=== PATIENT | female | born 1945 | race Two or more races ===

== ENCOUNTER 2024-03-30 11:00 | Outpatient (OUT) | payer MEDICAID, SELFPAY ==
--- NOTE | 2024-03-30 | XR_ITS ---
The [address] [address] Patient Name: IZZY MANZANARES MRN: [id number] date: 1945 Sex: F Assigned Patient Location: Current Patient Location: Accession/Order Number: [id number] Exam Date: 03/30/2024 11:02 Report Date: 03/30/2024 12:03 At the request of: DELONTE CISNEROS Procedure: XR knee LT 4V PROCEDURE: XR knee LT 4V COMPARISON: None. HISTORY: LEFT KNEE PAIN FINDINGS: BONES:No acute fracture or dislocation. Severe tricompartmental osteoarthritis with [id number] articulation medial compartment. Marginal osteophyte formation. Chondrocalcinosis SOFT TISSUES:Negative. No visible soft tissue swelling. EFFUSION:Moderate suprapatellar joint effusion OTHER: Negative. XR/XR knee LT 4V IMPRESSION: Severe osteoarthritis with joint effusion Electronically authenticated by: FRANNIE CAMPOS Date: 03/30/2024 12:03
== END 2024-03-30 11:01 | disposition home or self-care (01) ==
LOC: EC 11:00
PROVIDERS: Visit Provider Orthopaedic Surgery
DX: M25.562 Pain in left knee (principal); M17.12 Unilateral primary osteoarthritis, left knee
CPT/HCPCS: 73564

== ENCOUNTER 2024-11-28 12:32 | Emergency (ER) | payer MEDICARE, SELFPAY ==
[2024-11-28] VITALS (19 sets, daily range): BP systolic 142–164; BP diastolic 82–107; PULSE 69–83; TEMP 36.4; O2SAT 91–98; BMI 28.3
--- NOTE | 2024-11-28 12:41 | ECG_ITS ---
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
--- OUTSIDE RECORDS SUMMARY | 2024-11-28 12:43 | XMS_ITS | CCD ---
Author Organization [facility] Allergies Allergy Classification Reported Allergen(s) Allergy Type Date of Onset Reaction(s) Facility (1 source) IODINATED CONTRAST MEDIA; Translations: [IODINATED CONTRAST MEDIA] Propensity to adverse reactions to drug (disorder) [facility] Repository Medications Current Medications Medication Drug Class(es) Dates Sig (Normalized) Sig (Original) apixaban 2.5 mg oral tablet (1 source) Factor Xa Inhibitor Start: 03-10-2024 take 1 tablet by mouth twice daily Apixaban (Eliquis) 2.5 mg tablet Active 2.5 MG PO Twice daily March 10, 2024 12:00am aspirin 81 mg delayed release oral tablet (1 source) Platelet Aggregation Inhibitor, Nonsteroidal Anti-inflammatory Drug Start: 03-10-2024 Aspirin (Adult Low Dose Aspirin) 81 mg tablet,delayed release (DR/EC) Active 81 MG PO Daily March 10, 2024 12:00am atorvastatin 20 mg oral tablet (1 source) HMG-CoA Reductase Inhibitor Start: 03-10-2024 take 20 mg by mouth once daily Atorvastatin Active 20 MG PO Daily March 10, 2024 12:00am B Complex-Vitamin C-Folic Acid (Ashley-Jenny) 0.8 mg tablet (1 source) Start: 03-10-2024 take 1 tablet by mouth once daily B Complex-Vitamin C-Folic Acid (Ashley-Jenny) 0.8 mg tablet Active 1 TAB PO Daily March 10, 2024 12:00am cholecalciferol 0.125 mg oral capsule (1 source) Vitamin D Start: 03-10-2024 take 125 ug by mouth once daily Cholecalciferol (Vitamin D3) Active 125 MCG PO Daily March 10, 2024 12:00am hydrALAZINE hydrochloride 25 mg oral tablet (1 source) Arteriolar Vasodilator Start: 03-10-2024 take 25 mg by mouth three times daily Hydralazine Active 25 MG PO Three times daily March 10, 2024 12:00am 24 hr isosorbide mononitrate 30 mg extended release oral tablet (1 source) Nitrate Vasodilator Start: 03-10-2024 take 30 mg by mouth once daily Isosorbide Mononitrate Active 30 MG PO Daily March 10, 2024 12:00am levothyroxine sodium 0.088 mg oral capsule (1 source) l-Thyroxine Start: 03-10-2024 take 88 ug by mouth once daily Levothyroxine Active 88 MCG PO Daily March 10, 2024 12:00am 24 hr metoprolol succinate 50 mg extended release oral tablet (2 sources) beta-Adrenergic Luli Start: 03-10-2024 End: 03-10-2024 take 50 mg by mouth twice daily Metoprolol Succinate Active 50 MG PO Twice daily 180 90 March 10, 2024 12:00am Vericiguat (Verquvo) 2.5 mg tablet (1 source) Start: 03-10-2024 take 1 tablet by mouth once daily at mealtime Vericiguat (Verquvo) 2.5 mg tablet Active 2.5 MG PO Daily March 10, 2024 12:00am must administer with a meal/food Problems Problem Classification Problem Date Documented Da te Episodic/Chronic Essential hypertension (2 sources) Hypertensive disorder; Translations: [Essential (primary) hypertension] 03-10-2024 Chronic Other connective tissue disease (1 source) Pain in left finger(s); Translations: [Pain in left finger(s)] Onset: 11-15-2024 Episodic Other connective tissue disease (1 source) Hand pain Onset: 11-15-2024 Episodic Thyroid disorders (2 sources) Hypothyroidism; Translations: [Hypothyroidism, unspecified] 03-10-2024 Chronic Unclassified (1 source) Finger Pain Onset: 11-15-2024 Results Test Name Value Interpretation Reference Range Facil ity XR FINGER LT 2ND DIGIT MIN 2 VWSon 11-15-2024 XR FINGER LT 2ND DIGIT MIN 2 VWS XR FINGER LT 2ND DIGIT MIN 2 VWS Clinical history: Finger trauma Left second finger: 11/15/2024 FINDINGS: 3 views the left second digit were obtained. There is no definite fracture or focal osseous abnormality evident radiographically. Degenerative changes are present at the interphalangeal joints and the first MCP articulation. Some chondrocalcinosis may reflect crystalline deposition. IMPRESSION: No fracture or acute osseous abnormality. Finalized by Gilmer Alvarez MD on 11/15/2024 5:24 PM Normal [facility] XR FINGER LT 3RD DIGIT MIN 2 VWSon 11-15-2024 XR FINGER LT 3RD DIGIT MIN 2 VWS XR FINGER LT 3RD DIGIT MIN 2 VWS CLINICAL HISTORY: Pain and injury Comparison: None Views 3 views FINDINGS: * No fracture, dislocation, erosion, nor periostitis. * Alignment satisfactory. * No radiopaque foreign body * Periarticular calcification involving the MTP joints, TFCC, medial carpus. IMPRESSION: * Advancing degenerative changes above. No acute osseous abnormality Finalized by Farhad Thao MD on 11/15/2024 5:20 PM Normal [facility] Vital Signs Date Time Vital Sign Value Performing Clinician Yojanai jenny 03-10-2024 08:15-0400 Body height 162.56 cm [facility] 03-10-2024 08:15-0400 Body mass index (BMI) [Ratio] 28.5 kg/m2 [facility] 03-10-2024 08:15-0400 Body weight 75.29 kg [facility] 03-10-2024 08:15-0400 Diastolic blood pressure 78 mm[Hg] [facility] 03-10-2024 08:15-0400 Heart rate 72 /min [facility] 03-10-2024 08:15-0400 SaO2% (BldA) [Mass fraction] 98 % [facility] 03-10-2024 08:15-0400 Systolic blood pressure 122 mm[Hg] [facility] Encounters Encounter Date Encounter Type Care Provider Facility Start: 11-15-2024 End: 11-15-2024 Emergency department patient visit [facility] Start: 03-10-2024 End: 03-10-2024 ambulatory [facility] Work Phone: Start: 03-10-2024 End: 03-10-2024 Patient encounter procedure [facility] Work Phone: Payers Date Payer Category Payer Private Health Insurance [id number] 1945 Unknown [id number] Social History Date Type Detail Facility Start: 03-10-2024 Tobacco smoking stat us [facility] Never smoked tobacco (finding) [facility] Start: 1945 Sex Assigned At Female F [facility] Evaluation note Note Date & Type Note Facility Evaluation note Diagnosis Onset Date Hypertension acute Hypothyroidism acute [facility] Work Phone: Chief Complaint and Reason for Visit Chief Complaint Establish Reason for Visit Hypertension Hypothyroidism Advance Directives No Advanced Directives Records Found Advance Directive Response Recorded Date/ Time Advance Directives No March 06 1:42pm Summary Purpose Family History No Family History Records Found Additional Source Comments Care Teams (unrecognized sec tion and content) Team Status: Active Member Role Status Dates Ivory Crowell APRN SENIOR FUNCTIONAL ANALYST-C Primary Care Provider Active Team Status: Inactive Member Role Status Dates DARRYL Wagoner Primary Care Provider, Attending Provider Active Start: March 10, 2024 End: March 10, 2024 Goals (unrecognized section and content) Goals may be documented in a n alternate section INFORMATION SOURCE (unrecogn ized section and content) DATE CREATED AUTHOR 11/16/2024 [facility] FOR RECORDS PERTAINING TO PATIENTS WHO ARE OR HAVE BEEN ENROLLED IN A CHEMICAL DEPENDENCY/SUBSTANCEABUSE PROGRAM, SOME INFORMATION MAY BE OMITTED. This clinical summary was aggregated from multiple sources. Caution should be exercised in using it in the provision of clinical care. This summary normalizes information from multiple sources, and as a consequence, information in this document may materially change the coding, format and clinical context of patient data. In addition, data may be omitted in some cases. CLINICAL DECISIONS SHOULD BE BASED ON THE PRIMARY CLINICAL RECORDS. [employer] provides no warranty or guarantee of the accuracy or completeness of information in this document.
--- NOTE | 2024-11-28 12:48 | CT_ITS ---
The [address] [address] Patient Name: IZZY MANZANARES MRN: [id number] date: 1945 Sex: F Assigned Patient Location: ER Current Patient Location: ER Accession/Order Number: [id number] Exam Date: 11/28/2024 14:52 Report Date: 11/28/2024 14:59 At the request of: KARYNA SEARS Procedure: CT abdomen pelvis wo con CT abdomen pelvis wo con 11/28/2024 2:32 PM SIGNS AND SYMPTOMS: Acute epigastric pain with pain radiating into right upper quadrant TECHNIQUE: Multidetector ct axial images of the abdomen and pelvis were obtained without IV contrast. Multiplanar reformats were performed and reviewed to further define anatomy and possible pathology. CT was performed with one or more of the following dose reduction techniques: Automated exposure control, adjustment of the mA and/or kV according to patient size, or use of iterative reconstruction technique. COMPARISON: None. FINDINGS: Lower Chest: Mild atherosclerotic changes are noted in the coronary arteries. There is a pacer device with leads extending into the heart. Mild dependent airspace opacity is noted in the lower lobes bilaterally possibly representing infectious infiltrate or atelectasis. ABDOMEN: Liver: Within normal limits. Bile Ducts: Normal caliber. Gallbladder: No calcified gallstones. Normal caliber wall. Pancreas: Within normal limits. Spleen: Within normal limits. Adrenals: Within normal limits. Kidneys: Simple cysts are noted in the renal cortices requiring no further follow-up. Pelvis: Reproductive Organs: No pelvic masses. Ureters: Within normal limits. Bladder: Within normal limits. Bowel: There are uncomplicated colonic diverticula. Mesenteric Lymph Nodes: No enlarged mesenteric lymph nodes. Peritoneum: No ascites or free air, no fluid collection. Vessels: Atherosclerotic changes are noted in the abdominal aorta and its branches. Retroperitoneum: Within normal limits. Abdominal Wall: Within normal limits. Bones: Degenerative changes are noted in the thoracolumbar spine, hips, and sacroiliac joints. CT/CT abdomen pelvis wo con IMPRESSION: No bowel obstruction or obstructive uropathy. No free fluid or free air. No acute intra-abdominal pathology. Hazy airspace opacities are noted dependently in the lower lobes bilaterally possibly relating to atelectasis or developing infiltrate. Impression dictated by: Herrera Overton M.D.11/28/2024 2:59 PM Dictation Location: [place] [address] Electronically authenticated by: [id number] Y Date: 11/28/2024 14:59
[2024-11-28 13:03] LABS: Basophils Percent Auto 0.8 % (0.2-2.0); Eosinophils Absolute Auto 0.1 10^3/uL (0.0-0.7); Eosinophils Percent Auto 2.3 % (0.9-7.0); Hematocrit 40.1 % (36.0-48.0); Hemoglobin 13.3 g/dL (12.0-16.0); Immature Granulocytes Abs Auto 0.01 10^3/uL (0.00-0.03); Immature Granulocytes Pct Auto 0.2 % (0.0-0.5); Lymphocytes Absolute Auto 1.9 10^3/uL (1.2-3.8); Lymphocytes Percent Auto 36.8 % (20.5-60.0); Mean Corpuscular HGB Conc 33.2 g/dL (29.9-35.2); Mean Corpuscular Hemoglobin 31.1 pg (26.7-34.0); Mean Corpuscular Volume 93.7 fL (81.0-99.0); Mean Platelet Volume 9.7 fL (9.5-13.5); Monocytes Absolute Auto 0.5 10^3/uL (0.3-0.8); Monocytes Percent Auto 10.1 % (1.7-12.0); Neutrophils Absolute Auto 2.6 10^3/uL (1.4-6.5); Neutrophils Percent Auto 49.8 % (43.0-75.0); Platelet Count 171 10^3/uL (150-450); Red Blood Count 4.28 10^6/uL (4.20-5.40); Red Cell Distribution Width 14.6 % (11.0-15.0); White Blood Count 5.2 10^3/uL (4.0-11.0)
--- NOTE | 2024-11-28 13:04 | ED.ABDPAIN1 ---
HPI - Abdominal Pain General Chief Complaint: Abdominal Pain Stated Complaint: ABDOMINAL PAIN, SHORT OF BREATH Time Seen by Provider: 11/28/24 12:43 Source: patient Mode of arrival: walk-in Limitations: no limitations History of Present Illness HPI narrative: cc = right sided and epigastric abd pain Not sure why chest pain was entered in triage info but the patient told me that she had been having waxing and waning pain in the epigastrium and the right mid abdomen for the last month or so. No recent testing or evaluation for this. She said it worsened this morning so she asked the family to bring her to the ED. Nothing taken for the pain. No fever or chills. No nausea, vomiting or diarrhea. No change in urination and pain does not radiate to the flank. No blood in urine or stool. Prior surgeries include cholecystectomy and kidney stone removal more than 3o years ago . Hysterectomy and oophorectomy in 2020. All surgeries were in [place] where she lived until moving to [place] in 2022. PMHx includes PM implantation, multiple AMIs w stenting Related Data Home Medications ?Medication ?Instructions ?Recorded ?Confirmed apixaban 2.5 mg tablet (Eliquis) mg 11/28/24 atorvastatin 20 mg tablet mg 11/28/24 hydralazine 25 mg tablet mg 11/28/24 isosorbide mononitrate 30 mg mg PO 11/28/24 tablet,extended release 24 hr metoprolol succinate 50 mg mg PO 11/28/24 tablet,extended release 24 hr vitamin B complex-vitamin C-folic tab 11/28/24 acid 0.8 mg tablet (Ashley-Jenny) Previous Rx's ?Medication ?Instructions ?Recorded hyoscyamine sulfate 0.125 mg 0.125 mg PO Q6H PRN abdominal pain 11/28/24 sublingual tablet (Levsin/SL) #20 tabs omeprazole 20 mg capsule,delayed 20 mg PO DAILY 6 weeks #42 caps 11/28/24 release Allergies Allergy/AdvReac Type Severity Reaction Status Date / Time Iodinated Contrast Media Allergy Severe Rash Verified 11/28/24 12:41 PFSH PFSH Social History Little interest or pleasure in doing things: not at all Feeling down, depressed, or hopeless: not at all Exam Narrative Exam Narrative: Nurses notes and vital signs reviewed and patient is not hypoxic. afebrile General: Well-appearing and in no apparent distress. Skin: Warm, dry, no pallor noted. No rash to flank or abdomen. Head: Normocephalic, atraumatic. Eye: Pupils are equal, round and EOMI. No scleral icterus. Ears, Nose, Mouth, and Throat: Oral mucosa is moist Cardiovascular: Regular Rate and Rhythm without murmur, gallop or rub. Respiratory: No accessory muscle use or respiratory distress. Lungs are clear to auscultation, no wheezing, rales or rhonchi Back: No midline thoracic or lumbar vertebral tenderness. No CVA tenderness Musculoskeletal: normal ROM GI: Abdomen is soft, non-distended. Normal bowel sounds. No masses appreciated. Diffuse epigastric and right sided tenderness to palpation. No rebound, guarding, or rigidity noted. Neurological: A&O x4. No cranial nerve dysfunction observed. No truncal ataxia. Moves all extremities. Sensation intact. Psychiatric: Cooperative and interactive. Normal mood and affect. Constitutional Vital Signs, click to edit/add: Last Vital Signs Temp 97.6 F 11/28/24 12:36 Pulse 82 11/28/24 12:36 Resp 20 11/28/24 12:36 BP 164/107 H 11/28/24 12:36 Pulse Ox 97 11/28/24 12:36 O2 Del Method Room Air 11/28/24 12:36 Course Vital Signs Vital signs: Vital Signs Temperature 97.6 F 11/28/24 12:36 Pulse Rate 82 11/28/24 12:36 Respiratory Rate 20 11/28/24 12:36 Blood Pressure 164/107 H 11/28/24 12:36 Pulse Oximetry 97 11/28/24 12:36 Oxygen Delivery Method Room Air 11/28/24 12:36 Temperature 97.6 F 11/28/24 12:36 Pulse Rate 82 11/28/24 12:36 Respiratory Rate 20 11/28/24 12:36 Blood Pressure 164/107 H 11/28/24 12:36 Pulse Oximetry 97 11/28/24 12:36 Oxygen Delivery Method Room Air 11/28/24 12:36 MDM - Abdominal Pain MDM Narrative Medical decision making narrative: Patient was placed on awake overnight monitor and EKG obtained. Blood drawn and sent for evaluation. Peripheral IV established and she was given Zofran for nausea as a preventative measure since I ordered her to receive low-dose Dilaudid for pain. She is allergic to IV contrast, therefore we ordered a CT scan of the abdomen and pelvis to be done with oral contrast only. EKG shows ventricular pacing, consistent with the patient's history. CBC normal. CMP normal and lactate negative. CT scan did not reveal anything to account for the patient's pain. No bowel obstruction or obstructive uropathy, no free fluid or free air, no acute intra-abdominal pathology. Incidentally there are some airspace opacities noted in the lower lobes bilaterally, likely secondary to atelectasis versus developing infiltrate. However patient does not have cough or fever, has normal oxygenation and an unremarkable respiratory exam, making infiltrate less likely. Pt and family informed of findings - pt without any dangerous or worrisome pathology on exam and testing. Pt discharged home with prescription for omeprazole and Levsin and instructed to maintain clear liquid diet for next 24 hours. PCP follow up recommended. Lab Data Attestation: I reviewed the patient's lab results. Labs: Lab Results 11/28/24 Range/Units 12:57 WBC 5.2 (4.0-11.0) 10^3/uL RBC 4.28 (4.20-5.40) 10^6/uL Hgb 13.3 (12.0-16.0) g/dL Hct 40.1 (36.0-48.0) % MCV 93.7 (81.0-99.0) fL MCH 31.1 (26.7-34.0) pg MCHC 33.2 (29.9-35.2) g/dL RDW 14.6 (11.0-15.0) % Plt Count 171 (150-450) 10^3/uL MPV 9.7 (9.5-13.5) fL Neut % (Auto) 49.8 (43.0-75.0) % Lymph % (Auto) 36.8 (20.5-60.0) % [place] % (Auto) 10.1 (1.7-12.0) % Eos % (Auto) 2.3 (0.9-7.0) % Baso % (Auto) 0.8 (0.2-2.0) % Neut # (Auto) 2.6 (1.4-6.5) 10^3/uL Lymph # (Auto) 1.9 (1.2-3.8) 10^3/uL [place] # (Auto) 0.5 (0.3-0.8) 10^3/uL Eos # (Auto) 0.1 (0.0-0.7) 10^3/uL Baso # (Auto) 0.0 (0.0-0.1) 10^3/uL Abs Immat Gran (auto) 0.01 (0.00-0.03) 10^3/uL Imm/Tot Granulo (auto) 0.2 (0.0-0.5) % Sodium 137 (136-145) mmol/L Potassium 4.0 (3.5-5.1) mmol/L Chloride 103 (98-107) mmol/L Carbon Dioxide 27.5 (21.0-32.0) mmol/L Anion Gap 10.5 BUN 17.0 (7.0-18.0) mg/dL Creatinine 0.99 (0.55-1.02) mg/dL Est GFR ( Amer) >60 (>=60 mL/min/1.73m^2) Est GFR (Non-Af Amer) 54 L (>=60 mL/min/1.73m^2) BUN/Creatinine Ratio 17.2 Glucose 115 H (74-106) mg/dL Lactate 1.2 (0.4-2.0) mmol/L Calcium 10.5 H (8.5-10.1) mg/dL Total Bilirubin 1.1 H (0.2-1.0) mg/dL AST 28 (15-37) U/L ALT 29 (14-59) U/L Alkaline Phosphatase 74 (46-116) U/L Total Protein 7.1 (6.4-8.2) g/dL Albumin 3.8 (3.4-5.0) g/dL Globulin 3.3 g/dL Albumin/Globulin Ratio 1.[address] scan - abdomen: Radiologist's impression: ITS Impressions Abdomen/Pelvis CT 11/28/24 12:48 IMPRESSION: No bowel obstruction or obstructive uropathy. No free fluid or free air. No acute intra-abdominal pathology. Hazy airspace opacities are noted dependently in the lower lobes bilaterally possibly relating to atelectasis or developing infiltrate. Impression dictated by: Herrera Overton M.D.11/28/2024 2:59 PM Dictation Location: [place] [address] Electronically authenticated by: [id number] Y Date: 11/28/2024 14:59 ECG Data Attestation: I personally reviewed and interpreted this ECG as follows: Interpretation: EKG interpretation: Emergency Department physician interpretation. Electronic ventricular pacemaker at 79bpm. Atypical EKG. Discharge Plan Discharge Chief Complaint: Abdominal Pain Clinical Impression: Abdominal pain Patient Disposition: Home, Self-Care Time of Disposition Decision: 15:10 Prescriptions / Home Meds: New hyoscyamine sulfate [Levsin/SL] 0.125 mg tablet, sublingual 0.125 mg PO Q6H PRN (Reason: abdominal pain) Qty: 20 0RF omeprazole 20 mg capsule,delayed release(DR/EC) 20 mg PO DAILY 42 Days Qty: 42 0RF No Action atorvastatin 20 mg tablet metoprolol succinate 50 mg tablet extended release 24 hr PO isosorbide mononitrate 30 mg tablet extended release 24 hr PO hydralazine 25 mg tablet Ashley-Jenny 0.8 mg tablet Eliquis 2.5 mg tablet Print Language: Hong Konger Instructions: Abdominal Pain (ED) Referrals: Physician,Non-Staff, MD [Primary Care Provider] - 1 week
[2024-11-28] MEDS: HYDROMORPHONE HCL 0.5 MG/0.5 ML SYRINGE IVP (13:07)
[2024-11-28] MEDS: ONDANSETRON PF 4 MG/2 ML VIAL IV (13:07)
[2024-11-28 13:19] LABS: Alanine Aminotransferase 29 U/L (14-59); Albumin Globulin Ratio 1.2; Albumin Level 3.8 g/dL (3.4-5.0); Alkaline Phosphatase 74 U/L (46-116); Anion Gap 10.5; Aspartate Amino Transferase 28 U/L (15-37); BUN Creatinine Ratio 17.2; Bilirubin Total 1.1 mg/dL (0.2-1.0); Calcium 10.5 mg/dL (8.5-10.1); Carbon Dioxide 27.5 mmol/L (21.0-32.0); Chloride 103 mmol/L (98-107); Estimated GFR (African America >60 (>=60 mL/min/1.73m^2); Estimated GFR (Non-African Ame 54 (>=60 mL/min/1.73m^2); Globulin 3.3 g/dL; Glucose 115 mg/dL (74-106); Sodium 137 mmol/L (136-145); Total Protein 7.1 g/dL (6.4-8.2)
[2024-11-28 13:21] LABS: Lactate/Lactic Acid 1.2 mmol/L (0.4-2.0)
[2024-11-28 15:27] LABS: Bilirubin Urine NEGATIVE (NEGATIVE); Blood Urine TRACE-I (NEGATIVE); Clarity Urine CLEAR (CLEAR); Color Urine LT. YELLOW (YELLOW); Glucose Urine UA NEGATIVE (NEGATIVE); Ketones Urine NEGATIVE (NEGATIVE); Leukocyte Esterase Urine NEGATIVE (NEGATIVE); Nitrite Urine NEGATIVE (NEGATIVE); Protein Urine NEGATIVE (NEG/TRACE); Urobilinogen Urine 0.2 EU/dL (0.2-1.0); pH Urine 6.5 (5.0-9.0)
[2024-11-28 15:46] LABS: Bacteria Urine NONE SEEN #/HPF (NONE SEEN); Cast Seen? NONE SEEN #/LPF (NONE SEEN); Crystals Seen? None Seen #/HPF (None Seen); Mucus Urine NONE SEEN (NONE SEEN); RBC Urine 0-2 #/HPF (0-2); Squamous Epithelial Cell Urine RARE #/LPF (NONE/RARE); Urine Culture Indicated NO; WBC Urine 0-2 #/HPF (NONE SEEN)
== END 2024-11-28 15:23 | disposition home or self-care (01) ==
PROVIDERS: Emergency Provider Emergency Medicine
DX: Z95.0 Presence of cardiac pacemaker (principal); R10.84 Generalized abdominal pain; R10.13 Epigastric pain; R10.31 Right lower quadrant pain; Z90.49 Acquired absence of other specified parts of digestive tract
CPT/HCPCS: 36415; 74176; 80053; 81001; 83605; 85025; 93005; 96374; 96375; 99285; J1171; J2405; Q9963